=== PATIENT | female | born 1955 | race Caucasian/White ===

== ENCOUNTER 2017-02-26 15:21 | Observation (INO) | payer OTHER ==
[~2017-02-26] VITALS: Ht 154.9 cm; Wt 66.2 kg
[~2017-02-26 15:21] MED LIST: METF850T4 PO
[2017-02-26 15:25] VITALS: BP 136/60
[2017-02-26] MEDS ORDERED: NACL 0.9% 500 ML IV ONE (15:47)
--- NOTE | 2017-02-26 15:57 | NUR ---
PATIENT PRESENTS TO ER W/ C/O NAUSEA AND VOMITING x 2 DAYS. PAIN 6/10 PRESSURE EPIGASTRIC AREA.PT STATES SHE FEELS LIKE HER HEART IS RACING. SKIN IS PINK/WARM/DRY; AAOX4 WITH EVEN AND STEADY GAIT; LUNGS CLEAR BL;PT DENIES ANY FEVER, CP OR COUGH AT THIS TIME;PATIENT POSITIONED FOR COMFORT; HOB ELEVATED; BEDRAILS UP X2; BED DOWN.ALL MONITORS IN PALCED; ER MD MADE AWARE OF PT STATUS.
[2017-02-26] MEDS ORDERED: ONDANSETRON 4 MG/2 ML VIAL IVP ONE (16:00)
[2017-02-26 16:03] LABS: BASOPHILS # (AUTO) 0.1 K/uL (0.00-0.22); BASOPHILS % (AUTO) 1.4 % (0.0-2.0); EOSINOPHILS # (AUTO) 0.1 K/uL (0-0.4); EOSINOPHILS % (AUTO) 1.4 % (0.0-4.0); HEMATOCRIT 42.7 % (36-48); HEMOGLOBIN 14.1 g/dL (12.0-16.0); LYMPHOCYTES # (AUTO) 2.9 K/uL (2.5-16.5); LYMPHOCYTES % (AUTO) 27.5 % (20.5-51.1); MEAN CORPUSCULAR HEMOGLOBIN 28 pg (27-31); MEAN CORPUSCULAR HGB CONC 33 g/dL (33-37); MEAN CORPUSCULAR VOLUME 86 fL (80-94); MONOCYTES # (AUTO) 0.6 K/uL (0.8-1.0); MONOCYTES % (AUTO) 5.4 % (1.7-9.3); NEUTROPHILS # (AUTO) 6.9 K/uL (1.8-7.7); NEUTROPHILS % (AUTO) 64.3 % (42.2-75.2); PLATELET COUNT (AUTO) 383 K/uL (140-450); RED BLOOD CELL COUNT(AUTO) 4.97 MIL/uL (4.20-5.40); RED CELL DISTRIBUTION WIDTH 12.5 % (11.6-13.7); WHITE BLOOD COUNT (AUTO) 10.6 K/uL (4.8-10.8)
[2017-02-26] MEDS ORDERED: LORazepam 2 MG/ML VIAL IVP ONE (16:15)
[2017-02-26] MEDS ORDERED: MORPHINE SULFATE 2 MG/ML SYR IVP ONE (16:15)
[2017-02-26 16:23] LABS: ANION GAP 16.1 (8-16); ASPARTATE AMINOTRANSFERASE 18 U/L (15-37); CHLORIDE 101 mmol/L (98-107); CREATININE 0.8 mg/dL (0.6-1.3); GFR ARICAN-AMERICAN 94 mL/min (>90); GLUCOSE 310 mg/dL (74-106); POTASSIUM 4.1 mmol/L (3.5-5.1); PROTHROMBIN TIME 10.1 secs (10.8-13.4); SODIUM SERUM 138 mmol/L (136-145); TOTAL BILIRUBIN 0.4 mg/dL (0.0-1.0); UREA NITROGEN, BLOOD 18 mg/dL (7-18)
[2017-02-26 16:24] LABS: ACETONE, SERUM NEGATIVE (NEGATIVE)
--- NOTE | 2017-02-26 16:34 | NUR ---
PT RESTING ON BED;NO ACUTE DISTRESS NOTED;WILL CONTINUE TO MONITOR PT.
[2017-02-26] MEDS ORDERED: CLOPIDOGREL 75 MG TAB PO ONE (16:35)
[2017-02-26] MEDS ORDERED: NITROGLYCERIN 0.4 MG TAB SL ONE (16:55)
[2017-02-26] MEDS ORDERED: NACL 0.9% 1,000 ML IV ONE (17:35)
[2017-02-26] MEDS ORDERED: ZOLPIDEM 5 MG TAB PO PRN (17:35)
[2017-02-26] MEDS ORDERED: ONDANSETRON 4 MG/2 ML VIAL IVP PRN (17:35)
[2017-02-26] MEDS ORDERED: LORazepam 2 MG/ML VIAL IVP PRN (17:35)
[2017-02-26] MEDS ORDERED: DEXTROSE 50% 50 ML SYR IVP PRN (17:35)
[2017-02-26] MEDS ORDERED: NITROGLYCERIN 0.4 MG TAB SL PRN (17:35)
--- NOTE | 2017-02-26 17:45 | NUR ---
Patient will be admitted to care of DR MERRITT. Admited to TELE. Will go to room 104 B. Belongings list completed. Report to MARY PLEITEZ.
--- NOTE | 2017-02-26 17:58 | NUR ---
RECEIVED PT FROM ER, ASSISTED BY ER NURSE PER JOSUE. PT AWAKE, ALERT ORIENTEDX4. NO SOB NOTED ON O2 AT 2LPM NC. POSITIVE BOWEL SOUNDS NOTED ON FOUR QUADRANTS. PTY AMBULATORY. SAFETY PRECAUTION IN PLACE. CALL LIGHT WITHIN REACH.
[2017-02-26] MEDS ORDERED: ASPIRIN 81 MG TAB.CHEW PO SCH (18:00)
[2017-02-26 18:01] VITALS: BP 132/57
[2017-02-26] MEDS: MORPHINE SULFATE 2 MG/ML SYR IVP PRN ×2 (18:12→22:23)
--- NOTE | 2017-02-26 18:33 | NUR ---
DUE ASPIRIN AT 1800 NOT TAKEN DUE TO PT STILL HAVING NAUSEA AND VOMITING.
--- NOTE | 2017-02-26 19:19 | NUR ---
PT KEPT CLEAN, DRY, AND COMFORTABLE, NEEDS ATTENDED. ENDORSED TO NEXT SHIFT ON STABLE CONDITION FOR CONTINUITY OF CARE.
--- NOTE | 2017-02-26 19:20 | NUR ---
RECEIVED REPORT FROM AM NURSE. Admitted from ER, with chief complaint of CHEST/EPIGASTRIC PAIN, DX CHEST PAIN. PT FAMILY AT BEDSIDE 62 y/o, Female, Cooperative, AOX4, AMBULATORY, ABLE TO VERBALIZE NEEDS. PT DENIES CHEST PAIN AT THIS TIME, PT WAS ALREADY MEDICATED, WILL CONTINUE TO MONITOR. PT DENIES NAUSEA/VOMITING. PT DENIES SOB, CLAIMS SHE ONLY FEELS SOB WHEN SHE FEELS THE PAIN. [employer] TECHNICAL ARCHITECT IN PLACE. O2 2L NC ON. IV ACCESS ASYMPTOMATIC, PATENT AND INTACT. SALINE LOCKED AT THIS TIME. oriented to call light, bed, phone,television, bathroom, smoking policy, visiting hours, procedures, ID bracelet on. Belongings list checked. DISCUSSED AND REVIEWED PLAN OF CARE WITH PT AND FAMILY. PT VERBALIZED UNDERSTANDING. ALL NEEDS MET. SAFETY MEASURES ENSURED. CALL LIGHT WITHIN REACH. WILL CONTINUE TO MONITOR.
[2017-02-26 20:00] VITALS: BP 131/72
--- NOTE | 2017-02-26 20:26 | NUR ---
ADMINISTERED DUE ZOCOR PO WITH EDUCATION ORDERED, PT VERBALIZED UNDERSTANDING. ALL NEEDS MET. SAFETY MEASURES ENSURED. CALL LIGHT WITHIN REACH. WILL CONTINUE TO MONITOR.
[2017-02-26] MEDS ORDERED: SIMVASTATIN 20 MG TAB PO SCH (21:00)
[2017-02-26] MEDS ORDERED: METOPROLOL 25 MG TAB PO SCH (21:00)
--- NOTE | 2017-02-26 21:04 | NUR ---
CALLED DR DEE, [employer]PORATE REAL E[employer] SPECIALIST FOR DR MERRITT, DISCUSSED PT DX CHEST PAIN, AND THAT PT'S FAMILY IS REQUESTING AN US OF GALLBLADDER DUE TO PT STATING THAT PT HAD GALLSTONES FROM AN US FROM [facility] FROM 11/2016. DISCUSSED THAT PT DOES NOT HAVE NAUSEA/VOMITING AT THIS TIME, BUT PT STATED TO HAVE NAUSEA/VOMITING BEFORE ADMISSION. MD STATED TO WAIT UNTIL DR MERRITT EVALUATES HER IN THE MORNING, WILL UPDATE FAMILY. ALSO MADE MD AWARE THAT PT HAS DUE MED LOPRESSOR 25MG PO BID DUE AT THIS TIME. MADE MD AWARE THAT PT'S BP IS 131/72, HR 65 AT THIS TIME, BUT PT'S HR FROM ER AND EARLY ADMISSION WAS 51-55. ORDERS RECEIVED TO DISCONTINUE METOPROLOL PO. ORDERS PENDING, WILL CARRY OUT.
[2017-02-26] MEDS: BLOOD GLUCOSE MONITORING 1 DEV DEV FS SCH (21:48)
[2017-02-26] MEDS: INSULIN LISPRO SLIDING SCALE 100 UNITS/ML VIAL SUBQ PRN (21:58)
--- NOTE | 2017-02-26 21:58 | NUR ---
ADMINISTERED INSULIN COVERAGE WITH EDUCATION ORDERED. PT VERBALIZED UNDERSTANDING, TOLERATED MED WELL. ALL NEEDS MET. SAFETY MEASURES ENSURED. CALL LIGHT WITHIN REACH. WILL CONTINUE TO MONITOR.
--- NOTE | 2017-02-26 22:23 | NUR ---
PT C/O PAIN. SEE PAIN ASSESSMENT. ADMINISTERED MORPHINE IVP PRN WITH EDUCATION ORDERED. PT VERBALIZED UNDERSTANDING, TOLERATED MED WELL. ALL NEEDS MET. SAFETY MEASURES ENSURED. CALL LIGHT WITHIN REACH. WILL CONTINUE TO MONITOR.
[2017-02-27] VITALS (7 sets, daily range): BP systolic 109–127; BP diastolic 51–62
--- NOTE | 2017-02-27 00:15 | NUR ---
PT SLEEPING COMFORTABLY. NO S/S OF ACUTE DISTRESS. ALL NEEDS MET. SAFETY MEASURES ENSURED. CALL LIGHT WITHIN REACH. WILL CONTINUE TO MONITOR.
[2017-02-27 01:32] LABS: CREATINE KINASE MB 0.1 ng/mL (0-3.6)
[2017-02-27] MEDS ORDERED: PNEUMOCOCCAL VACCINE 23 MCG/0.5 ML VIAL IMVAC SCH ×3 (03:15→03:55)
--- NOTE | 2017-02-27 04:02 | NUR ---
PT SLEEPING COMFORTABLY. NO S/S OF ACUTE DISTRESS. ALL NEEDS MET. SAFETY MEASURES ENSURED. CALL LIGHT WITHIN REACH. WILL CONTINUE TO MONITOR.
[2017-02-27] MEDS ORDERED: PNEUMOCOCCAL VACCINE 23 MCG/0.5 ML VIAL IMVAC PRN (04:20)
[2017-02-27] MEDS ORDERED: REGADENOSON 0.4 MG/5 ML SYR IV ONE ×2 (06:15→07:10)
--- NOTE | 2017-02-27 06:23 | NUR ---
CALLED DR DAVIS, DISCUSSED PT A CONSULT FOR DR MERRITT WITH DX CHEST PAIN; CLARIFIED PT'S ORDERED STRESS TEST TODAY AT 1100. DISCUSSED THAT PT'S DIET IS CCHO60 AT THIS TIME AND THAT PT HAS NOT ATE/DRANK SINCE LAST NIGHT 2100, ASKED WHETHER THE PT NEEDS TO BE NPO. DISCUSSED THAT PT'S LATEST BLOOD SUGAR IS 225, PT IS DIABETIC, ALSO ASKED WHETHER PT CAN RECEIVE 4UNITS HUMALOG INSULIN COVERAGE. ORDERS RECEIVED FOR CLEAR LIQUID DIET, AND THAT PT CAN RECEIVE INSULIN COVERAGE. DISCUSSED THAT PT TROPONIN ARE NEGATIVE X2 AND PT'S BP 114/60, HR 68 AT 0400. DISCUSSED PT MEDICATIONS, MADE MD AWARE THAT PT'S METOPROLOL WAS DISCONTINUED LAST NIGHT DUE PT PT HAVING LOW HR AT TIMES. MADE MD AWARE OF PT'S HOME MED LISINOPRIL 2.5MG QDAILY. ORDERS RECEIVED TO START LISINOPRIL 2.5MG QDAILY TONIGHT AT 2100. ORDERS RECEIVED FOR LEXISCAN WITH REGADENOSON TODAY AT 1100, AND TO CANCEL STRESS TEST. MD STATED NOT TO CALL HIM UNLESS THE NEXT TROPONIN IS NOT NEGATIVE. ORDERS PENDING, WILL CARRY OUT.
[2017-02-27] MEDS: INSULIN LISPRO SLIDING SCALE 100 UNITS/ML VIAL SUBQ PRN ×2 (06:43→18:01)
[2017-02-27] MEDS: BLOOD GLUCOSE MONITORING 1 DEV DEV FS SCH ×3 (06:44→16:59)
--- NOTE | 2017-02-27 07:10 | NUR ---
RECEIVED PATIENT REPORT. PATIENT AWAKE, ALERT AND ORIENTED. PATIENT ON 2L O2. NO SOB NOTED. PATIENT REPORTS 2/10 CHEST PAIN. WILL MEDICATE. PATIENT ON TELE MONITORING. BED LOWERED WITH CALL LIGHT WITHIN REACH. WILL CONTINUE TO MONITOR
--- NOTE | 2017-02-27 07:15 | NUR ---
ENDORSED PLAN OF CARE TO AM NURSE. CONDITION STABLE.
[2017-02-27] MEDS ORDERED: NACL 0.9% 1,000 ML IV SCH (07:20)
--- NOTE | 2017-02-27 07:20 | NUR ---
RECEIVED CALL FROM DR RYAN MD HAS CHANGED ORDERS TO NPO, WILL NOTIFY PT. ORDERS RECEIVED FOR NS AT 75ML/HR.
[2017-02-27 07:22] LABS: HEMATOCRIT 40.4 % (36-48); HEMOGLOBIN 13.8 g/dL (12.0-16.0); MEAN CORPUSCULAR HEMOGLOBIN 29 pg (27-31); MEAN CORPUSCULAR HGB CONC 34 g/dL (33-37); MEAN CORPUSCULAR VOLUME 86 fL (80-94); PLATELET COUNT (AUTO) 313 K/uL (140-450); RED BLOOD CELL COUNT(AUTO) 4.72 MIL/uL (4.20-5.40); RED CELL DISTRIBUTION WIDTH 12.5 % (11.6-13.7); WHITE BLOOD COUNT (AUTO) 14.9 K/uL (4.8-10.8)
[2017-02-27 07:56] LABS: ANION GAP 14.3 (8-16); CARBON DIOXIDE 24.5 mmol/L (21-32); CREATININE 0.6 mg/dL (0.6-1.3); POTASSIUM 3.8 mmol/L (3.5-5.1)
[2017-02-27 08:05] LABS: BASOPHILS % (MANUAL) 1 % (0-2); LYMPHOCYTES % (MANUAL) 13 % (20-46)
[2017-02-27 08:06] LABS: MONOCYTES % (MANUAL) 5 % (5-12)
[2017-02-27] MEDS ORDERED: ENOXAPARIN 40 MG/0.4 ML SYR SUBQ SCH (09:00)
--- NOTE | 2017-02-27 09:31 | NUR ---
PATIENT HAS BEEN SCREENED AND CATEGORIZED MODERATE NUTRITION RISK. PATIENT WILL BE SEEN WITHIN 3-5 DAYS OF ADMISSION. 03/01/17-03/03/[address]
[2017-02-27] MEDS ORDERED: oxyCODONE 5 MG TAB PO PRN (11:10)
--- NOTE | 2017-02-27 11:45 | NUR ---
SPOKE WITH DR DAVIS. PER DR DAVIS, PATIENT IS CLEARED FOR DISCHARGE FROM HIS STANDPOINT. ORDERS TO CANCEL LEXISCAN AND TO RESUME PATIENT'S DIET
[2017-02-27 12:13] LABS: BILIRUBIN,DIRECT 0.1 mg/dL (0.0-0.3); TOTAL BILIRUBIN 0.9 mg/dL (0.0-1.0)
[2017-02-27 12:14] LABS: ALBUMIN 3.6 g/dL (3.4-5.0)
--- NOTE | 2017-02-27 12:34 | NUR ---
PATIENT BACK FROM STRESS TEST
[2017-02-27] MEDS ORDERED: ASPIRIN 81 MG TAB.CHEW PO SCH (18:00)
--- NOTE | 2017-02-27 18:45 | NUR ---
SPOKE WITH DR ANÍBAL PAGAN AND INFORMED HER ABOUT THE RESULTS OF THE US OF THE GALLBLADDER. PER , PATIENT OK TO BE DISCHARGED
--- NOTE | 2017-02-27 19:22 | NUR ---
PATIENT ENDORSED TO THE NIGHT NURSE. PATIENT ENDORSED IN STABLE CONDITION
--- NOTE | 2017-02-27 19:30 | NUR ---
RECEIVED REPORT FROM AM NURSE. PT FAMILY AT BEDSIDE. PT RESTING IN BED, AOX4, AMBULATORY, ABLE TO VERBALIZE NEEDS. PT DENIES CHEST PAIN AT THIS TIME, DENIES SOB, OR S/S OF ACUTE DISTRESS. PT DENIES NAUSEA/VOMITING. TUNE UP MECHANIC IN PLACE. IV ACCESS ASYMPTOMATIC, PATENT AND INTACT. SALINE LOCKED AT THIS TIME. oriented to call light, bed, phone,television, bathroom, smoking policy, visiting hours, procedures, ID bracelet on. Belongings list checked. DISCUSSED AND REVIEWED PLAN OF CARE WITH PT AND FAMILY. PT VERBALIZED UNDERSTANDING. ALL NEEDS MET. SAFETY MEASURES ENSURED. CALL LIGHT WITHIN REACH. WILL CONTINUE TO MONITOR.
--- NOTE | 2017-02-27 20:25 | NUR ---
ADMINISTERED PNA VACCINE WITH EDUCATION. PT VERBALIZED UNDESTANDING, TOLERATED MED WELL. IV ACCESS REMOVED, CANNULA INTACT. PT TOLERATED WELL.
--- NOTE | 2017-02-27 20:54 | NUR ---
PT C/O SLIGHT HEADACHE, ADMINISTERED ROXICODONE PO PRN WITH EDUCATION ORDERED. PT VERBALIZED UNDERSTANDING. TOLERATED MED WELL.
--- NOTE | 2017-02-27 20:59 | NUR ---
DISCUSSED AND REVIEWED DISCHARGE INSTRUCTIONS WITH PT AND PT'S DAUGHTER. PT VERBALIZED UNDERSTANDING. PT DISCHARGED WITH PT'S DAUGHTER ACCOMPANYING, PT AMBULATORY. CONDITION STABLE.
[2017-02-27] MEDS ORDERED: LISINOPRIL 5 MG TAB PO SCH (21:00)
--- NOTE | 2017-03-02 14:29 | NUR ---
CM NOTE PER CROSSTIE INSPECTOR SHARONDA, REVIEW SHOULD BE SENT TO [facility] ONLY. RETRO REVIEW FAXED TO [facility] [phone] EHSAN Ramos # [phone]
== END 2017-02-27 20:59 | disposition home or self-care (01) ==
LOC: MED 15:21 → INTOOBSV 17:38 → MTU 17:38
PROVIDERS: ADMIT Hospitalist; ATTEND Hospitalist
DX: E11.9 Type 2 diabetes mellitus without complications (principal); R07.2 Precordial pain; Z90.710 Acquired absence of both cervix and uterus; R10.13 Epigastric pain; Z23 Encounter for immunization
CPT/HCPCS: 36415; 71010; 76705; 80048; 80053; 80076; 82009; 82550; 82553; 82948; 84484; 85025; 85610; 85730; 87081; 90732; 93005; 93017; 96361; 96374; 96375; 99285; G0378; J1650; J1815; J2060; J2270; J2405; J7030; Q0092; J2785